=== PATIENT | male | born 1970 | race Caucasian/White ===

== ENCOUNTER → 2016-09-23 | Day surgery (SDC) | payer OTHER ==
[~2016-09-23] VITALS: Ht 177.8 cm; Wt 108.9 kg
[~2016-09-23] MED LIST: AMOXICILLIN500 M2 PO; AMOXICILLIN500 MG PO; Anusol Hc,Anuco25 MG PO; BACTRIM DS 8001 TA1 PO; CALCIUM CITRAT200 M1 PO; CEPHALEXIN500 M1 PO; CIPROFLOXACIN500 MG PO; CLINDAMYCIN150 MG PO; CYCLOBENZAPRINE10 MG PO; HYDROCODONE BIT1 T11 PO; MASON NATURAL2000 IU PO; MEDROL DOSEPAK4 MG PO; Motrin,Rufen800 MG PO; NAPROXEN500 MG PO; NKHM; NORCO 5-325 TA1 EACH PO; PENICILLIN VK500 MG PO; PREDNISONE20 M1 PO; VITAMIN D1000 IU PO; VOLTAREN50 M1 PO; ZOFRAN4 MG PO
--- NOTE | ~2016-09-23 | O ---
[place], [place] OPERATIVE NOTE NAME: [facility]O [id number] UNIT #: [id number] ROOM: DOCTOR: ALETHA MARES DO BIRTHDATE: [birth year] DOS: 09/23/2016 PREOPERATIVE DIAGNOSES: Left index finger soft tissue mass and osteomyelitis. POSTOPERATIVE DIAGNOSES: Left index finger soft tissue mass and osteomyelitis. PROCEDURES: Left index finger excision of soft tissue mass, removal of nail plate, debridement and biopsy of osteomyelitis of distal phalanx. SURGEON: Aletha Mares DO. PROJECT DESIGN ENGINEER: Casie. ANESTHESIA: EDMUND Melendez. INDICATIONS: The patient is a 46-year-old male with a history of a painful mass at the distal left index finger. He had an MRI ordered by his primary care physician, which indicated osteomyelitis. The patient was treated with antibiotics and scheduled for surgical intervention. 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 The risks and benefits of the procedure were explained to the patient preoperatively. Preoperative labs and x-rays were obtained. PROCEDURE IN DETAIL: The patient was brought to the operative suite, placed supine on the operative table. The left index finger had been marked in the hold room. Time-out was performed. A monitored anesthetic was performed. The left upper extremity was prepped and draped in usual orthopedic manner. Tourniquet was placed at the left wrist. The hand was elevated and the tourniquet was inflated to 250 mmHg. A metacarpal block was performed using Marcaine 0.5% plain. The index finger was noted to have a mass, firm, grayish in color, approximately 0.5 x 0.5 cm. This was just under the nail plate. The nail plate was removed using a [place] elevator and hemostat. The mass was excised in its entirety in an elliptical fashion. The distal tuft of the distal phalanx was debrided using a rongeur and a curette. Bone obtained was sent to the lab for further study. A deep culture was obtained and sent for Gram stain, culture and sensitivity, acid-fast bacilli and fungal cultures. No gross purulence was noted. The area was copiously irrigated with normal saline. The wound was closed in a simple fashion with 4-0 Prolene. Xeroform was applied to the sterile matrix and tucked under the eponychial fold. A bulky dry sterile dressing was applied. The tourniquet was released. The patient was taken to the recovery room in satisfactory condition. COUNTS: Sponge and needle count correct. ESTIMATED BLOOD LOSS: None. [place], [place] OPERATIVE NOTE NAME: SHARLENE GALEANO UNIT #: [id number] ROOM: DOCTOR: ALETHA MARES DO BIRTHDATE: [birth year] SPECIMENS: Soft tissue, nail plate and bone. DRAINS: None. PACKING: None. COMPLICATIONS: None. FINDINGS: Soft tissue mass, left index finger with osteomyelitis. ALETHA MARES DO CM:OPRECORD:OPERATIVE NOTE [id number] ALETHA MARES DO 09/23/16 1506 interface
[2016-09-23 06:45] VITALS: BP 114/70
[2016-09-23 08:18] VITALS: BP 119/81
[2016-09-23 08:33] VITALS: BP 133/82
[2016-09-23 08:48] VITALS: BP 144/92
[2016-09-23 09:03] VITALS: BP 146/90
[2016-09-23 09:10] VITALS: BP 148/88
== END | disposition home or self-care (01) ==
LOC: SDC 09-16 14:00
DX: M86.642 Other chronic osteomyelitis, left hand (principal); L57.0 Actinic keratosis; K21.9 Gastro-esophageal reflux disease without esophagitis; F17.210 Nicotine dependence, cigarettes, uncomplicated

== ENCOUNTER → 2016-10-14 | Outpatient (CLI) | payer OTHER | END | disposition home or self-care (01) | LOC: RAD 10:55 | DX: M86.8X4 Other osteomyelitis, hand (principal); Z89.022 Acquired absence of left finger(s) ==

== ENCOUNTER → 2016-10-22 | Outpatient (CLI) | payer OTHER | END | disposition home or self-care (01) | LOC: ORTHO 03:09 | DX: M86.9 Osteomyelitis, unspecified (principal); Z98.890 Other specified postprocedural states ==

== ENCOUNTER 2016-11-09 00:53 | Emergency (ER) | payer OTHER ==
[~2016-11-09] VITALS: Ht 177.8 cm; Wt 108.9 kg
[2016-11-09] MEDS ORDERED: ROBITUSSIN AC 110 ML PO (02:00)
[2016-11-09] MEDS ORDERED: OMNICEF300 MG PO (02:00)
== END 2016-11-09 02:24 | disposition home or self-care (01) ==
LOC: ED 00:53
DX: J01.90 Acute sinusitis, unspecified (principal); J40 Bronchitis, not specified as acute or chronic; F17.200 Nicotine dependence, unspecified, uncomplicated; Z87.442 Personal history of urinary calculi; Z98.890 Other specified postprocedural states; Z88.5 Allergy status to narcotic agent; Z79.899 Other long term (current) drug therapy

== ENCOUNTER 2017-02-24 12:02 | Emergency (ER) | payer OTHER ==
[~2017-02-24] VITALS: Wt 99.8 kg
[~2017-02-24 12:02] MED LIST changes: +OMNICEF300 MG PO; +ROBITUSSIN AC 110 ML PO
[2017-02-24] MEDS ORDERED: MELOXICAM15 MG PO (12:05)
[2017-02-24] MEDS ORDERED: VITAMIN D-32000 UNI1 PO (12:05)
[2017-02-24 12:25] LABS: BASO # 0.1 10*3/uL (0.0-0.1); BASO % 0.9 % (0.0-1.0); EOS # 0.5 10*3/uL (0.0-0.4); EOS % 5.5 % (1.0-4.0); HEMATOCRIT 45.3 % (42.0-52.0); HEMOGLOBIN 15.6 g/dl (14.0-18.0); LYMPH % 33.9 % (27.0-41.0); MEAN CELL VOLUME 92.6 fl (80.0-94.0); MEAN CORPUSCULAR HGB 31.9 pg (27.0-31.0); MEAN CORPUSCULAR HGB CONC 34.4 g/dl (33.0-37.0); MEAN PLATELET VOLUME 10.3 fl (9.6-12.3); MONO # 0.8 10*3/uL (0.1-1.0); MONO % 9.1 % (3.0-9.0); NEUT # 4.4 10*3/uL (2.3-7.9); NEUT % 49.1 % (47.0-73.0); PLATELET COUNT AUTOMATED 163 10*3/uL (130-400); RED BLOOD COUNT 4.89 10*6/uL (4.50-5.90); RED CELL DISTRI WIDTH 12.9 % (0-14.5); WHITE BLOOD COUNT 8.9 10*3/uL (4.8-10.8)
[2017-02-24 12:35] LABS: BILIRUBIN NEGATIVE (NEGATIVE); BLOOD NEGATIVE (NEGATIVE); CLARITY CLEAR (CLEAR); COLOR YELLOW (YELLOW); GLUCOSE NEGATIVE (NEGATIVE); KETONE NEGATIVE (NEGATIVE); LEUKO ESTERASE NEGATIVE (NEGATIVE); NITRITE NEGATIVE (NEGATIVE); SPECIFIC GRAVITY 1.025 (1.005-1.030); UROBILINOGEN 0.2 E.U./dl (0.2-1.0)
[2017-02-24 12:40] LABS: ALKALINE PHOSPHATASE 71 U/L (45-117); BUN 17 mg/dl (7-24); CHLORIDE 108 mmol/L (98-107); CREATININE 1.18 mg/dL (0.70-1.30); POTASSIUM 3.9 mmol/L (3.5-5.1); SGOT/AST 33 IU/L (3-35); SGPT/ALT 66 U/L (12-78); SODIUM 140 mmol/L (136-145); TOTAL PROTEIN 7.3 gm/dL (6.4-8.2)
== END 2017-02-24 13:41 | disposition home or self-care (01) ==
LOC: ED 12:02
PROVIDERS: Nurse Practitioner Family
DX: R10.30 Lower abdominal pain, unspecified (principal); F17.200 Nicotine dependence, unspecified, uncomplicated; Z88.6 Allergy status to analgesic agent; Z79.899 Other long term (current) drug therapy; Z98.890 Other specified postprocedural states

== ENCOUNTER → 2017-05-08 | Emergency (ER) | payer OTHER ==
[~2017-05-08] VITALS: Ht 177.8 cm; Wt 108.9 kg
[~2017-05-08] MED LIST changes: +CYCLOBENZAPRINE5 M3 PO; +MELOXICAM15 MG PO; +ULTRAM50 MG PO; +VITAMIN D-32000 UNI1 PO
== END ==
LOC: ED 05:52
DX: S16.1XXA Strain of muscle, fascia and tendon at neck level, initial encounter (principal); M50.31 Other cervical disc degeneration, high cervical region; F17.200 Nicotine dependence, unspecified, uncomplicated; Z88.6 Allergy status to analgesic agent; Z79.899 Other long term (current) drug therapy; W10.8XXA Fall (on) (from) other stairs and steps, initial encounter; Y93.89 Activity, other specified; Y92.89 Other specified places as the place of occurrence of the external cause; Y99.8 Other external cause status

== ENCOUNTER 2017-11-23 00:46 | Emergency (ER) | payer SELFPAY ==
[~2017-11-23] VITALS: Wt 108.9 kg
[2017-11-23] MEDS ORDERED: PEPCID20 MG PO (01:31)
== END 2017-11-23 01:53 | disposition home or self-care (01) ==
LOC: ED 00:46
DX: K21.9 Gastro-esophageal reflux disease without esophagitis (principal); F17.200 Nicotine dependence, unspecified, uncomplicated; Z87.442 Personal history of urinary calculi; Z98.890 Other specified postprocedural states; Z79.899 Other long term (current) drug therapy; Z88.5 Allergy status to narcotic agent

== ENCOUNTER 2018-06-29 18:51 | Emergency (ER) | payer SELFPAY ==
[~2018-06-29] VITALS: Ht 177.8 cm; Wt 117.9 kg
[~2018-06-29 18:51] MED LIST changes: +IBUPROFEN600 MG PO; +PEPCID20 MG PO; +ROBAXIN500 M1 PO
[2018-06-29] MEDS ORDERED: ANUSOL-HC25 MG R (19:21)
== END 2018-06-29 19:35 | disposition home or self-care (01) ==
LOC: ED 18:51
DX: K64.4 Residual hemorrhoidal skin tags (principal); F17.200 Nicotine dependence, unspecified, uncomplicated; Z88.6 Allergy status to analgesic agent; Z79.899 Other long term (current) drug therapy